=== PATIENT | male | born 1955 | race Caucasian/White ===

== ENCOUNTER 2016-07-31 08:41 | Inpatient (IN) | payer MEDICARE ==
[~2016-07-31] VITALS: Ht 180.3 cm; Wt 90.8 kg
[~2016-07-31 08:41] MED LIST: AMLO10TA2 PO; FLUT1SPR22 EACH NARE; LISI10TA3 PO; METH10TA PO; OMEP20CA2 PO; SIMV20TA PO; ZETI10TA5 PO
--- NOTE | 2016-07-31 17:56 | MH ---
cc: BRIAN CALLAHAN M.D. DATE OF ADMISSION: 08/01/2016 ADMITTING DIAGNOSIS: Lumbar degenerative disk disease. HISTORY OF PRESENT ILLNESS This is a 60-year-old male who presented to us for evaluation for neck and low back pain. He states his low back pain hurts more than his back pain. He has had low back pain chronically since he was a kid, and was diagnosed with ankylosing spondylitis at 11. He states in 1993 he urinated a disk at the L5-S1 level a acquired effusion and had multiple lumbar surgeries since then. He relates that he has had seven spine surgeries. His last surgery was in 1998. He states he tried to just manage his pain after the last surgery but it has progressively gotten worse for the last three years and he started seeking medical help for his pain. He states he has been to neurosurgery in [facility] who felt that they could not help him long-term. He states he went to pain management and has had injections in the cervical thoracic lumbar spine which he states sometimes a help and sometimes a dont. He states pain management feels the spinal stimulator or pain pump will not help him. He states he cannot walk a block now. He cannot get out of a stooped position secondary to low back pain and the pain in his legs. He states he has been on several pain medications in the past and he does not like the way they make him feel and he is currently on low dose methadone which helps take the edge off. He states he has pain across his low back and burning in his anterior legs with associated numbness and tingling. He also states his legs feel like they are in a vice. He also has pain radiating down the posterior left leg. He states his knees and ankles are killing him. He has burning on the bottom of his feet. He states his left leg oumar but he does not fall. He ambulates without any assistive device. He also has constant neck pain which he states started after he woke up from back surgery 1996. He states he was found to have C5-C6 and C6-C7 degenerative disk disease and has had a cervical fusion 1999 which helped him until about couple years ago the pain got bad again. He states he gets numbness in the bilateral fourth and fifth fingers. He also has pain and numbness of the shoulders to the forearms and into the first and second fingers bilaterally. He states his triceps areas totally numb. He has weakness in his hands and states he drops cups all the time and had to switch to plastic cups. He has urinary frequency and microscopic hematuria and is followed by urology for this. He has been chronically disabled since his cervical lumbar spine surgeries. PAST MEDICAL HISTORY: Significant for hypertension. Hyperlipidemia Gastroesophageal reflux disease. Chronic pain. Appendectomy 1961 Hernia repair in 1979. Left knee surgery 1977 and 1984. Right knee surgery 1988. Multiple lumbar spine fusions. The patient states that he has had seven lumbar spine surgeries C5-C7 fusion in 2001. CURRENT MEDICATIONS 1. He is taking lisinopril 10 mg p.o. q.h.s. 2. Amlodipine 10 mg p.o. q.h.s. 3. Methadone 10 mg p.o. b.i.d. 4. Simvastatin 20 mg q.h.s. steady at 10 mg p.o. daily. 5. Prilosec 20 mg p.o. b.i.d. 6. Fluticasone. 7. Nasal spray. ALLERGIES NO KNOWN DRUG ALLERGIES. SOCIAL HISTORY Drinks alcohol about two three times per year. He denies any current smoking. He states he quit 1.5 years ago. REVIEW OF SYSTEMS CONSTITUTIONAL: He denies any fever or chills. EAR, NOSE, AND THROAT: Positive for sinus drainage and hearing loss. CARDIOVASCULAR SYSTEM: Positive for palpitations. Denies chest pain. GENITOURINARY: No dysuria. Positive for history of hematuria. MUSCULOSKELETAL: Positive for neck and low back pain. SKIN: Positive for pruritus. NEUROLOGIC: No difficulty with speech or memory and the GASTROINTESTINAL: Positive for nausea in constipation. PSYCHIATRIC: No anxiety, positive for depression symptoms, positive for polyuria. PHYSICAL EXAMINATION HEAD, EYES, EARS, NOSE, AND THROAT: Head: Normocephalic, atraumatic. NECK: Supple. No carotid bruits heard on auscultation. LUNGS: Lungs clear to auscultation bilaterally. HEART: Regular rate and rhythm, normal sinus. ABDOMEN: Soft, nontender. Positive bowel sounds. SKIN: Reveals no cyanosis or erythema. He has a large lumbosacral midline incision. MUSCULOSKELETAL: He has 4/5 strength in his lower extremities which is limited secondary to his pain. He ambulates with a left Limp but no assistive devices. NEUROLOGIC: He is awake, alert, oriented. Cranial nerves II-XII are grossly intact. Speech is fluent, comprehension is good. Sensation is decreased the left biceps, triceps more then the right as well as the fifth finger and decrease the left lateral thigh and calf compared to the right-side. DATA REVIEWED: MRI of the lumbar spine from 02/21/2016 reveals moderate to severe L2-L3 spinal stenosis from a combination of facet ligamentum flavum hypertrophy. He has a post-laminectomy defect from L3-S1. CT of the lumbar spine from March 22, 2016 shows a L5 / S1 posterior lateral interbody fusion, L3-L4 posterior lateral fusion with non fusion at the L4-L5 level. Her pedicle screw defects from the removed screws bilaterally at the L3, l4, l5, S1 levels. MRI of the thoracic spine from February 24, 2016 does not reveal any significant stenosis. MRI of the cervical spine from 02/21/2016 reveals a previous fusion and plate from C5-C7 anteriorly with the C7 / T1 disk osteophyte complex and overall mild to moderate spinal stenosis and foraminal stenosis. He has mild stenosis at the C3-C4 and C4 / C5 levels. IMPRESSION 60-year-old male with a chronic history of low back pain along with neurogenic claudication symptoms and chronic paresthesias and numbness in his feet. He states that up until about 5 months ago. He is able to walk several miles a day but now cannot walk a block because of worsening back pain and lower extremity symptoms. He also complains of lower cervical spine pain radiating into the calf and to the scapula and upper extremities with chronic numbness and paresthesias in the ulnar distribution as well as radial distribution. He also states he has subjective weakness in his hands with fine motor control difficulty. Overall his low back symptoms bother him more than the neck symptoms. He has had multiple bouts of physical therapy and states he does these exercises are regular basis as much as he can tolerate them. He has also undergone multiple bouts of interventional pain management which has not helped him recently. He is on methadone and wants to avoid taking narcotic pain medications. He states over the past few years his quality of life significantly declined. He has significant L2-L3 spinal stenosis from facet ligamentum flavum hypertrophy along with adjacent segment disease and fusion at L3-L4 and also L5-S1 with pedicle screws that had been removed from L3-S1. He also has a anterior L5-S1 interbody fusion. The L4, L6 and L5 level does not appear to have fused, there is pseudoarthrosis noted. He does have a history of C5-C7 anterior cervical fusion with adjacent segment disease with disk osteophyte complex at the C7 / T1 level with overall mild to moderate spinal stenosis and significant foraminal stenosis, left more then right. There is also mild disk protrusion and stenosis at the C3-C4 and C4 / C5 levels. PLAN The patient is requesting surgical intervention for his lumbar and cervical spine. The patient states he is more symptomatic from his lumbar spine and he is requesting that we proceed with this first. We have recommended an L4 / L5 posterior lateral fusion with L2 / L3 transforaminal interbody fusion with cage and pedicle screw fixation. The procedure as well as the risk benefit, alternative recovery time were explained in great detail with the patient. We have discussed the risks involved with surgery include but not limited to bleeding, infection, muscle weakness voice hoarseness, difficulty swallowing, heart attack, stroke blood clots, non fusion, scar tissue formation among others. The patient understands the procedure as well as the risks involved is requesting that we proceed. He is therefore scheduled accordingly. Brian Callahan MD DICTATED BY: VANCE Maria/jethro /5:15 PM /5:39 PM
[2016-08-01 06:58] VITALS: BP 142/83; PULSE 83; RESP 18; TEMP 98.3; O2SAT 99
[2016-08-01] MEDS ORDERED: SODIUM CHLOR 0.9% 250 ML INJ 250 ML ONE (07:08)
[2016-08-01] MEDS ORDERED: VANCOMYCIN HCL 1000 MG VIAL ONE ×2 (07:08→11:26)
[2016-08-01] MEDS ORDERED: SODIUM CHLORID 0.9% 500 ML IV PRN (07:15)
[2016-08-01] MEDS: SODIUM CHLOR 0.9% 1000 ML INJ 1,000 ML IV SCH (07:15)
[2016-08-01] MEDS ORDERED: LACTATED RINGER'S 1000 ML IV PRN (07:15)
[2016-08-01] MEDS ORDERED: POVIDONE IODINE 5% (ANTISEPSIS KIT) 4 APPLICATIONS EACH NARE PRN (07:15)
[2016-08-01] MEDS ORDERED: METOPROLOL TARTRATE 25 MG TAB PO PRN (07:15)
[2016-08-01] MEDS ORDERED: CHLORHEXIDINE GLUCONATE 2 % 1 PACK (2 CLOTHS) TOPICAL PRN (07:15)
[2016-08-01] MEDS ORDERED: INSULIN HUMAN REGULAR 1,000 UNITS/10 ML VIAL SQ PRN (07:15)
[2016-08-01] MEDS ORDERED: VANCOMYCIN 1,000 MG/NS 250 ML IV SCH ×2 (07:15)
[2016-08-01] MEDS ORDERED: THROMBIN (TOPICAL) 5,000 UNIT VIAL ONE ×2 (07:18→11:26)
[2016-08-01] MEDS ORDERED: GELFOAM SIZE 100 ONE ×2 (07:18→11:26)
[2016-08-01] MEDS ORDERED: ACETAMINOPHEN 1000 MG/100 ML VIAL IV ONE (07:41)
[2016-08-01] MEDS ORDERED: FAMOTIDINE 20 MG/2 ML VIAL ONE (07:41)
[2016-08-01] MEDS ORDERED: HYDROmorphone HCL PF 2 MG/ML VIAL ONE (08:04)
[2016-08-01] MEDS: BUPIVACAINE/EPINEPHRINE 0.5% PF 30 ML VIAL ONE ×2 (09:24→11:37)
[2016-08-01] MEDS ORDERED: KETAMINE HCL 500 MG/5 ML VIAL ONE (09:28)
[2016-08-01] MEDS: VANCOMYCIN HCL 1000 MG VIAL ONE ×2 (09:30→11:30)
[2016-08-01] MEDS ORDERED: BUPIVACAINE/EPINEPHRINE 0.5% PF 30 ML VIAL ONE (11:40)
[2016-08-01] MEDS ORDERED: ePHEDrine/NS 25 MG/5 ML SYR IV ONE (12:00)
[2016-08-01] MEDS ORDERED: NORMOSOL R INJ 2,000 ML IV ONE (12:00)
[2016-08-01] MEDS ORDERED: NEOSTIGMINE 3 MG/3 ML SYR IV ONE (12:00)
[2016-08-01] MEDS ORDERED: NEOSTIGMINE METHYLSULFATE 10 MG/10 ML VIAL IV PUSH ONE (12:00)
[2016-08-01] MEDS ORDERED: PROPOFOL 200 MG/20 ML AMP IV ONE (12:00)
[2016-08-01] MEDS ORDERED: ONDANSETRON HCL 4 MG/2 ML VIAL IV PUSH ONE (12:00)
[2016-08-01] MEDS ORDERED: PHENYLEPH/NS 1000 MCG/10 ML SYR IV ONE (12:00)
[2016-08-01] MEDS: NS + KCL 20 MEQ INJ 1,000 ML IV SCH ×2 (12:32→21:55)
[2016-08-01] MEDS ORDERED: CALCIUM GLUCONATE INJ 1 GM in SODIUM CHLORIDE 0.9% INJ 100 ML IV PRN (12:45)
[2016-08-01] MEDS ORDERED: PROCHLORPERAZINE INJ 10 MG/2 ML VIAL IV PUSH PRN (12:45)
[2016-08-01] MEDS ORDERED: MENTHOL LOZENGE BUCCAL PRN (12:45)
[2016-08-01] MEDS ORDERED: ONDANSETRON HCL 4 MG/2 ML VIAL IV PRN (12:45)
[2016-08-01] MEDS ORDERED: MAGNESIUM HYDROXIDE SUSP 30 ML CUP PO PRN (12:45)
[2016-08-01] MEDS ORDERED: cloNIDine HCL 0.1 MG TAB PO PRN (12:45)
[2016-08-01] MEDS ORDERED: diphenhydrAMINE HCL 50 MG/ML VIAL IV PRN (12:45)
[2016-08-01] MEDS ORDERED: SODIUM CHLORIDE 0.9% FLUSH 10 ML FLUSH IV FLUSH PRN (12:45)
[2016-08-01] MEDS ORDERED: NALOXONE HCL 0.4 MG/ML AMP IV PRN (12:45)
[2016-08-01] MEDS ORDERED: ALUMINUM/MAGNESIUM/SIMETH 30 ML CUP PO PRN (12:45)
[2016-08-01] MEDS ORDERED: ZOLPIDEM TARTRATE 5 MG TAB PO PRN (12:45)
[2016-08-01] MEDS ORDERED: MAGNESIUM SULFATE INJ 2 GM in SODIUM CHLORIDE 0.9% INJ 100 ML IV PRN (12:45)
[2016-08-01] MEDS ORDERED: ACETAMINOPHEN 325 MG TAB PO PRN (12:45)
[2016-08-01] MEDS ORDERED: ACETAMINOPHEN/HYDROcodone 325 MG/10 MG TAB PO PRN (12:45)
[2016-08-01] MEDS ORDERED: RESP: ALBUTEROL 2.5 MG/3 ML NEB (PRN) NEB (12:45)
[2016-08-01] MEDS ORDERED: POTASSIUM CHLOR 20 MEQ PREMIX 100 ML IV PRN (12:45)
--- NOTE | 2016-08-01 12:46 | PD.OP ---
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 endotracheal by Beau Haney Surgeon: Brian Olivera M.D. Business Planner(s): Kiki Welsh Operation and Findings: Following initiation of general endotracheal anesthesia, the patient had a Sullivan catheter placed along with sequential compression devices. A gram of vancomycin was administered intravenously and he was turned in a prone position on a Amando frame, on a Andrea table, and all pressure points adequately padded. The lumbosacral region was then prepped with Chloraprep and sterilely draped with Ioban along the usual sterile draping. A right paraspinal skin incision was then made extending from the L2-3 level after infiltrating the skin with 0.5% Marcaine with epinephrine solution extending down through the fascia. The muscle fibers were split using avascular fatty plane and detached from the underlying facets, transverse process and lateral portion of lamina on the right side and a self-retaining retractor used for exposure. Intraoperative fluoroscopy was also used for level of confirmation along with microscope magnification for further dissection. There was significant facet and ligamentum flavum hypertrophy noted at the L2-L3 levels. Right L2-3 facet was resected with a drill bit along with the lamina and there was severe foraminal and lateral recess stenosis from hypertrophied ligamentum flavum and facet which were decompressed bilaterally through the unilateral approach. Epidural hemostasis was achieved with bipolar cautery and Gelfoam with thrombin. Subsequently entered into the disc space at the L2-3 level with a #15 blade and zheng were used for discectomy. I then placed PEEK cage packed with local autograft bone and more local autograft bone was packed adjacent to the cage in interspace for added interbody fusion. With placement of the cage, I was able to distract the interspace and opened up the foramen further bilaterally. Subsequently in order to facilitate the fusion and provide stabilization, pedicle screw fixation was undertaken using [place] spine screws on entry point at the right L2-3 levels at the junction of the transverse process and facet. Subsequently using AP and lateral fluoroscopy tap and screw placement. The screws were then connected with a marvel and locked in place with caps. The construct appeared very secure at this point. The area was then copiously irrigated with Vancomycin solution and powder. I then made another incision overlying the L4-5 level with exposure of the facet and transverse process and the pseudoarthrosis with failed fusion was noted at this level. With the drill bit the lateral portion of the facet and transverse processes were decorticated and the local autograft bone packed for a posterolateral fusion. The retractors were removed and the bipolar cautery used for hemostasis. The muscle fascia was then approximated using 2-0 Vicryl interrupted stitches and then 3-0 Vicryl subcuticular stitches also placed in interrupted fashion. The final skin closure was completed with Dermabond. A sterile dressing was then applied. The patient then turned in supine position, extubated and taken to recovery room. There were no intraoperative complications. All sponge and needle counts were correct at the end of procedure. Estimated blood loss about 100 ml. Brian Olivera MD August 01, 2016 12:46
[2016-08-01] MEDS ORDERED: fentaNYL CITRATE 250 MCG/5 ML AMP ONE (13:01)
[2016-08-01] MEDS ORDERED: MIDAZOLAM HCL 2 MG/2 ML VIAL ONE (13:01)
[2016-08-01] MEDS ORDERED: *morphine SULFATE 8 MG/ML PERIprocedure ONLY ONE ×2 (13:02→14:12)
[2016-08-01 13:25] LABS: AUTOMATED NEUTROPHIL # 8.6 TH/MM3 (1.8-7.7); BASOPHIL % 0.2 % (0.0-2.0); EOSINOPHIL % 0.1 % (0.0-4.0); HEMATOCRIT 36.6 % (39.0-51.0); HEMO FLAGS DIFF FINAL; LYMPH % 7.8 % (9.0-44.0); LYMPHOCYTE # 0.7 TH/MM3 (1.0-4.8); MEAN CELL VOLUME 88.6 FL (80.0-100.0); MEAN CORPUSCULAR HEMOGLOBIN 30.6 PG (27.0-34.0); MEAN CORPUSCULAR HGB CONC 34.5 % (32.0-36.0); MONO % 0.8 % (0.0-8.0); NEUT % 91.1 % (16.0-70.0); PLATELET COUNT 226 TH/MM3 (150-450); RED BLOOD COUNT 4.12 MIL/MM3 (4.50-5.90); RED CELL DISTRIBUTION WIDTH 13.9 % (11.6-17.2); WHITE BLOOD COUNT 9.5 TH/MM3 (4.0-11.0)
[2016-08-01] MEDS: MORPHINE SULFATE 30 MG/30 ML PCA IV SCH (13:25)
--- NOTE | 2016-08-01 13:37 | RADRPT ---
EXAM DATE/TIME: 08/01/2016 09:06 [place] COMPARISON: No previous studies available for comparison. INDICATIONS : Lumbar spine L3-4 fusion and L4-5 laminectomy. OR. MEDICAL HISTORY : None. SURGICAL HISTORY : None. ENCOUNTER: Initial ACUITY: 1 day PAIN SCORE: Non-responsive. LOCATION: Lumbar L3-4-5 FINDINGS: Examination reveals hardware fusion at what I believe is L3-4 with pedicle screw and longitudinal bar fixation present on the right. Intervening disc space appears well-positioned. Alignment is satisfac tory and hardware is intact. The alignment at the lower levels is also satisfactory. No acute bony fi ndings are appreciated. CONCLUSION: Satisfactory operative appearance Rush Stallings MD on August 01, 2016 at 13:34 Board Certified Radiologist. This report was verified electronically.
[2016-08-01 13:50] LABS: BICARBONATE 24.4 MEQ/L (21.0-32.0); MAGNESIUM 3.2 MG/DL (1.5-2.5); POTASSIUM 3.4 MEQ/L (3.5-5.1)
[2016-08-01] MEDS: PCA - TOTAL MG MORPHINE DELIVERED PER SHIFT SCH ×2 (14:00→21:53)
[2016-08-01] MEDS ORDERED: *HYDROmorphone PF 1 MG VIAL PERIprocedural Use ONLY ONE (14:52)
[2016-08-01] MEDS: ACETAMINOPHEN/HYDROcodone 325 MG/10 MG TAB PO PRN (16:42)
[2016-08-01] MEDS: CYCLOBENZAPRINE HCL 10 MG TAB PO PRN (16:50)
--- NOTE | 2016-08-01 19:25 | EKG ---
Date Performed: 08/01/2016 Time Performed: 07:17:08 PTAGE: 60 years EKG: Sinus rhythm NORMAL ECG NO PREVIOUS TRACING DOCTOR: Augustina Bernal Interpretating Date/Time 08/01/2016 19:23:07
[2016-08-01 20:00] VITALS: BP 96/51; PULSE 70; RESP 16; TEMP 97; O2SAT 97
[2016-08-01] MEDS: PANTOPRAZOLE SOD 20 MG DELAYED RELEASE TAB PO SCH (21:56)
[2016-08-01] MEDS: DOCUSATE SODIUM 100 MG CAP PO SCH (21:56)
[2016-08-01] MEDS: FLUTICASONE PROPIONATE 50 MCG/ACT 16 GM NASAL SPRAY NASAL SCH (21:56)
[2016-08-01] MEDS: PRAVASTATIN SOD 40 MG TAB PO SCH (21:56)
[2016-08-01] MEDS: SODIUM CHLORIDE 0.9% FLUSH 10 ML FLUSH IV FLUSH SCH (21:56)
[2016-08-01] MEDS: LISINOPRIL 10 MG TAB PO SCH (21:57)
[2016-08-01] MEDS: METHADONE HCL 10 MG TAB PO SCH (21:57)
[2016-08-02 00:30] VITALS: BP_SYST 105; BP_SYST 148; BP_DIAS 60; BP_DIAS 93; PULSE 87; RESP 16; RESP 17; TEMP 96.3; TEMP 97; O2SAT 95; O2SAT 96
[2016-08-02 04:15] VITALS: BP 102/61; PULSE 73; RESP 17; TEMP 96.8; O2SAT 97
[2016-08-02] MEDS: PCA - TOTAL MG MORPHINE DELIVERED PER SHIFT SCH ×3 (05:08→21:26)
[2016-08-02] MEDS: SODIUM CHLOR 0.9% 1000 ML INJ 1,000 ML IV SCH (07:15)
[2016-08-02 07:50] VITALS: BP 97/57; PULSE 69; RESP 17; TEMP 97.4; O2SAT 97
[2016-08-02] MEDS: LACTULOSE SYRUP 20 GM/30 ML CUP PO SCH (08:13)
[2016-08-02] MEDS: DOCUSATE SODIUM 100 MG CAP PO SCH ×2 (08:14→20:36)
[2016-08-02] MEDS: EZETIMIBE 10 MG TAB PO SCH (08:14)
[2016-08-02] MEDS: PANTOPRAZOLE SOD 20 MG DELAYED RELEASE TAB PO SCH ×2 (08:14→20:35)
[2016-08-02] MEDS: METHADONE HCL 10 MG TAB PO SCH ×2 (08:15→20:36)
[2016-08-02] MEDS: SODIUM CHLORIDE 0.9% FLUSH 10 ML FLUSH IV FLUSH SCH ×2 (08:15→20:36)
[2016-08-02] MEDS: NS + KCL 20 MEQ INJ 1,000 ML IV SCH ×2 (08:17→17:50)
--- NOTE | 2016-08-02 10:02 | HHI.NSPN ---
History Chief Complaint: Incisional pain controlled. Interval History 08/02/16: s/p Lumbar L2-3 transforaminal interbody fusion; L4-5 posterolateral fusion; L2-L3 decompressive laminectomies with medial facetectomies; L2-3 pedicle screw fixation; L2-3 interbody cage placement, pod #1. Pt awake and alert. States stabbing shooting pain in LEs resolved. mild tingling in toes and plantar aspect of foot at toes. Incisional pain controlled with ART HISTORIAN. Pt states he has had difficulty in the past urinating after surgery and request Sullivan to be left in another day. Review of Systems General: Negative for: fever, chills, insomnia Respiratory: Negative for: shortness of breath, cough, sputum Cardiovascular: Negative for: chest pain Gastrointestinal: Negative for: nausea, vomitting, diarrhea, constipation Exam Results Vital Signs Date Time Temp Pulse Resp B/P Pulse Ox O2 Delivery O2 Flow Rate FiO2 08/02/16 07:50 97.4 69 17 97/57 97 08/01/16 19:00 Room Air 08/01/16 16:30 2 Intake and Output 08/01/16 08/01/16 08/02/16 08:00 16:00 00:00 Intake Total 1900 ml 1470 ml Output Total 1250 ml 1050 ml Balance 650 ml 420 ml Physical Examination Resp: CTA bilaterally Heart: NSR no murmurs Abd: Soft positive bs Skin: Pt log rolled. Incision clean and dry. No signs of infection. new bandage place. Muscle: Moves LEs with overall 4+/5 strength, mild limitation secondary to pain. Neuro: Pt awake and alert. Follows commands well. Speech clear and appropriate. Lab, Micro, Other Results Last Impressions Lumbar Spine X-Ray 08/01/16 0000 Signed Impressions: Service Date/Time: Monday, August 01, 2016 09:06 - CONCLUSION: Satisfactory operative appearance Rush Stallings MD Laboratory Tests Test 08/01/16 13:04 White Blood Count 9.5 TH/MM3 Red Blood Count 4.12 MIL/MM3 Hemoglobin 12.6 GM/DL Hematocrit 36.6 % Mean Corpuscular Volume 88.6 FL Mean Corpuscular Hemoglobin 30.6 PG Mean Corpuscular Hemoglobin 34.5 % Concent Red Cell Distribution Width 13.9 % Platelet Count 226 TH/MM3 Mean Platelet Volume 7.1 FL Neutrophils (%) (Auto) 91.1 % Lymphocytes (%) (Auto) 7.8 % Monocytes (%) (Auto) 0.8 % Eosinophils (%) (Auto) 0.1 % Basophils (%) (Auto) 0.2 % Neutrophils # (Auto) 8.6 TH/MM3 Lymphocytes # (Auto) 0.7 TH/MM3 Monocytes # (Auto) 0.1 TH/MM3 Eosinophils # (Auto) 0.0 TH/MM3 Basophils # (Auto) 0.0 TH/MM3 CBC Comment DIFF FINAL Differential Comment Sodium Level 142 MEQ/L Potassium Level 3.4 MEQ/L Chloride Level 109 MEQ/L Carbon Dioxide Level 24.4 MEQ/L Anion Gap 9 MEQ/L Blood Urea Nitrogen 15 MG/DL Creatinine 1.13 MG/DL Estimat Glomerular Filtration 66 ML/MIN Rate Random Glucose 139 MG/DL Calcium Level 8.4 MG/DL Magnesium Level 3.2 MG/DL 08/01/16 08/01/16 08/02/16 15:00 23:00 07:00 Intake Total 1900 ml 1470 ml 1278 ml Output Total 1250 ml 1050 ml 600 ml Balance 650 ml 420 ml 678 ml Intake Oral 480 ml 480 ml IV Total 990 ml 798 ml Other 1900 ml Output Urine Total 350 ml 1050 ml 600 ml Estimated Blood Loss 100 ml Other 800 ml # Bowel Movements 0 0 Medical Decision Making Impression and Plan A: 60 y/o M s/p Lumbar L2-3 transforaminal interbody fusion; L4-5 posterolateral fusion; L2-L3 decompressive laminectomies with medial facetectomies; L2-3 pedicle screw fixation; L2-3 interbody cage placement, pod # 1. P: Continue with pain control Increase activity, oob with brace. continue with current care Morgan Thompson August 02, 2016 10:02
[2016-08-02] MEDS: FLUTICASONE PROPIONATE 50 MCG/ACT 16 GM NASAL SPRAY NASAL SCH ×2 (10:31→20:37)
[2016-08-02 12:07] VITALS: BP 122/66; PULSE 67; RESP 17; TEMP 95.9; O2SAT 96
[2016-08-02] MEDS: MORPHINE SULFATE 30 MG/30 ML PCA IV SCH (13:19)
[2016-08-02 16:00] VITALS: BP 128/69; PULSE 70; RESP 17; TEMP 98; O2SAT 98
[2016-08-02] MEDS: CYCLOBENZAPRINE HCL 10 MG TAB PO PRN (20:35)
[2016-08-02] MEDS: LISINOPRIL 10 MG TAB PO SCH (20:36)
[2016-08-02] MEDS: PRAVASTATIN SOD 40 MG TAB PO SCH (20:36)
[2016-08-02] MEDS: ACETAMINOPHEN/HYDROcodone 325 MG/10 MG TAB PO PRN (20:37)
[2016-08-02 20:50] VITALS: BP 116/62; PULSE 77; RESP 17; TEMP 97.2; O2SAT 99
[2016-08-03] VITALS (8 sets, daily range): BP systolic 106–135; BP diastolic 57–69; PULSE 67–76; RESP 12–18; TEMP 96.7–98.7; O2SAT 95–99
[2016-08-03] MEDS: SODIUM CHLOR 0.9% 1000 ML INJ 1,000 ML IV SCH (02:11)
[2016-08-03] MEDS: MORPHINE SULFATE 30 MG/30 ML PCA IV SCH (03:52)
[2016-08-03] MEDS: NS + KCL 20 MEQ INJ 1,000 ML IV SCH (03:52)
[2016-08-03] MEDS: PCA - TOTAL MG MORPHINE DELIVERED PER SHIFT SCH (05:20)
[2016-08-03] MEDS: ACETAMINOPHEN/HYDROcodone 325 MG/10 MG TAB PO PRN ×3 (08:12→23:18)
[2016-08-03] MEDS: EZETIMIBE 10 MG TAB PO SCH (08:13)
[2016-08-03] MEDS: SODIUM CHLORIDE 0.9% FLUSH 10 ML FLUSH IV FLUSH SCH ×2 (08:13→21:47)
[2016-08-03] MEDS: LACTULOSE SYRUP 20 GM/30 ML CUP PO SCH (08:13)
[2016-08-03] MEDS: FLUTICASONE PROPIONATE 50 MCG/ACT 16 GM NASAL SPRAY NASAL SCH ×2 (08:13→21:47)
[2016-08-03] MEDS: METHADONE HCL 10 MG TAB PO SCH ×2 (08:13→21:50)
[2016-08-03] MEDS: DOCUSATE SODIUM 100 MG CAP PO SCH ×2 (08:13→21:49)
[2016-08-03] MEDS: PANTOPRAZOLE SOD 20 MG DELAYED RELEASE TAB PO SCH ×2 (08:13→21:49)
--- NOTE | 2016-08-03 10:12 | HHI.NSPN ---
(Morgan Thompson) History Chief Complaint: Incisional pain controlled. (Morgan Thompson) Interval History 08/02/16: s/p Lumbar L2-3 transforaminal interbody fusion; L4-5 posterolateral fusion; L2-L3 decompressive laminectomies with medial facetectomies; L2-3 pedicle screw fixation; L2-3 interbody cage placement, pod #1. Pt awake and alert. States stabbing shooting pain in LEs resolved. mild tingling in toes and plantar aspect of foot at toes. Incisional pain controlled with DIRECTOR OF INSTRUCTIONAL TECHNOLOGY. Pt states he has had difficulty in the past urinating after surgery and request Sullivan to be left in another day. 08/03/16: Pt states he is much more painful today. He wants to stop the DIRECTOR OF INSTRUCTIONAL TECHNOLOGY stating he doesn't think its helping much and the oral pain medication helping more. He has burning pain left side of back and sharp stabbing pain in the left anterior thigh. (Morgan Thompson) Review of Systems General: Negative for: fever, chills, insomnia Respiratory: Negative for: shortness of breath, cough, sputum Cardiovascular: Negative for: chest pain Gastrointestinal: Negative for: nausea, vomitting, diarrhea, constipation ( Morgan Thompson) Exam Results Vital Signs Date Time Temp Pulse Resp B/P Pulse Ox O2 Delivery O2 Flow Rate FiO2 08/03/16 08:00 97.1 76 15 109/64 97 08/01/16 19:00 Room Air 08/01/16 16:30 2 Intake and Output 08/02/16 08/02/16 08/03/16 08:00 16:00 00:00 Intake Total 1278 ml 1020 ml 480 ml Output Total 600 ml 1750 ml 1700 ml Balance 678 ml -730 ml -1220 ml (Morgan Thompson) Physical Examination Resp: CTA bilaterally Heart: NSR no murmurs Abd: Soft positive bs Skin: Bandage changed by RN this morning, clean and dry. Muscle: Moves LEs with overall 4+/5 strength, mild limitation secondary to pain. Neuro: Pt awake and alert. Follows commands well. Speech clear and appropriate. (Morgan Thompson) Lab, Micro, Other Results Last Impressions Lumbar Spine X-Ray 08/01/16 0000 Signed Impressions: Service Date/Time: Monday, August 01, 2016 09:06 - CONCLUSION: Satisfactory operative appearance Rush Stallings MD 08/02/16 08/02/16 08/03/16 15:00 23:00 07:00 Intake Total 1020 ml 480 ml 240 ml Output Total 1750 ml 1700 ml 1750 ml Balance -730 ml -1220 ml -1510 ml Intake Oral 1020 ml 480 ml 240 ml Output Urine Total 1750 ml 1700 ml 1750 ml # Voids 0 # Bowel Movements 0 0 0 (Morgan Thompson) Medical Decision Making Impression and Plan A: 60 y/o M s/p Lumbar L2-3 transforaminal interbody fusion; L4-5 posterolateral fusion; L2-L3 decompressive laminectomies with medial facetectomies; L2-3 pedicle screw fixation; L2-3 interbody cage placement, pod # 2. P: D/C DIRECTOR OF INSTRUCTIONAL TECHNOLOGY per pts request. Continue with oral pain meds. Discussed trying Neurontin but he states it made him feel lousy last time he was on it and wants to try to get by without it. Increase activity, oob with brace. continue with current care (Morgan Thompson) Attending Statement The exam, history, and the medical decision-making described in the above note were completed with the assistance of the mid-level provider. I reviewed and agree with the findings presented. I attest that I had a [id number] encounter with the patient on the same day, and personally performed and documented my assessment and findings in the medical record. (Brian Olivera MD) Morgan Thompson August 03, 2016 10:12 Brian Olivera MD August 03, 2016 13:52
[2016-08-03] MEDS ORDERED: HYDROmorphone HCL PF 1 MG/ML VIAL IV PUSH PRN (13:00)
[2016-08-03] MEDS ORDERED: BISACODYL 10 MG SUPP RECTAL ONE (14:00)
[2016-08-03] MEDS ORDERED: GETGO ROLLING W1 MI1 (14:11)
[2016-08-03] MEDS ORDERED: CYCL1TAB29 PO (14:18)
[2016-08-03] MEDS ORDERED: HYDR-3583 PO (14:18)
[2016-08-03] MEDS: PRAVASTATIN SOD 40 MG TAB PO SCH (21:00)
[2016-08-03] MEDS: LISINOPRIL 10 MG TAB PO SCH (21:49)
[2016-08-04] MEDS: ACETAMINOPHEN/HYDROcodone 325 MG/10 MG TAB PO PRN ×4 (05:25→21:27)
[2016-08-04 07:39] VITALS: BP 126/66; PULSE 65; RESP 17; TEMP 98.2; O2SAT 97
[2016-08-04] MEDS: METHADONE HCL 10 MG TAB PO SCH ×2 (09:00→21:26)
[2016-08-04] MEDS: LACTULOSE SYRUP 20 GM/30 ML CUP PO SCH (09:00)
[2016-08-04 09:21] VITALS: O2SAT 98
[2016-08-04] MEDS: PANTOPRAZOLE SOD 20 MG DELAYED RELEASE TAB PO SCH ×2 (10:34→21:25)
[2016-08-04] MEDS: DOCUSATE SODIUM 100 MG CAP PO SCH ×2 (10:34→21:25)
[2016-08-04] MEDS: EZETIMIBE 10 MG TAB PO SCH (10:34)
[2016-08-04] MEDS: SODIUM CHLORIDE 0.9% FLUSH 10 ML FLUSH IV FLUSH SCH ×2 (10:36→21:25)
[2016-08-04] MEDS: FLUTICASONE PROPIONATE 50 MCG/ACT 16 GM NASAL SPRAY NASAL SCH ×2 (10:37→21:25)
[2016-08-04 11:37] VITALS: BP 121/69; PULSE 71; RESP 17; TEMP 97.1; O2SAT 98
[2016-08-04 15:56] VITALS: BP 113/64; PULSE 67; RESP 17; TEMP 97.4; O2SAT 99
[2016-08-04 19:46] VITALS: BP 116/63; PULSE 74; RESP 17; TEMP 96.6; O2SAT 98
--- NOTE | 2016-08-04 20:06 | HHI.DCPOC ---
Discharge Care Plan Diagnosis: (1) Lumbar stenosis with neurogenic claudication Your Health Problems Are: Difficulty with ADL Incision/Drains Chronic Pain Goals to Promote Your Health * To prevent worsening of your condition and complications * To maintain your health at the optimal level Directions to Meet Your Goals Take your medications as prescribed Follow your dietary instruction Follow activity as directed Keep your appointments as scheduled Take your immunizations and boosters as scheduled If your symptoms worsen call your PCP, if no PCP go to Urgent Care Center or Emergency Room Smoking is Dangerous to Your Health. Avoid second hand smoke Call the 24-hour hour crisis hotline for domestic abuse at Josse Castaneda MD August 04, 2016 20:06
--- NOTE | 2016-08-04 20:12 | HHI.NSPN ---
History Chief Complaint: Incisional pain controlled. Interval History 60-year-old male status post L2-3 TLIF 08/01/16. System Review Comments Intermittent mild to moderate discomfort and some persistent numbness primarily anterior medial left thigh and calf. Improved compared to preoperative. Exam Results Vital Signs Date Time Temp Pulse Resp B/P Pulse Ox O2 Delivery O2 Flow Rate FiO2 08/04/16 15:56 97.4 67 17 113/64 99 08/04/16 09:21 21 08/03/16 19:01 Room Air 08/01/16 16:30 2 Intake and Output 08/03/16 08/03/16 08/04/16 08:00 16:00 00:00 Intake Total 240 ml 1440 ml 720 ml Output Total 1750 ml 1450 ml 700 ml Balance -1510 ml -10 ml 20 ml Physical Examination Respirations clear and regular Sitting up in a chair Awake and alert, conversant and appropriate Sensation mildly diminished primarily L3 distribution left lower extremity Mild weakness left iliopsoas and quadriceps with complaint of back pain with testing. Otherwise normal strength throughout the lower extremities No lower extremity edema Medical Decision Making Impression and Plan Impression: 1. Patient's neurologic status and pain improving postoperatively. Vital signs stable. Tolerating diet. Ambulating with walker. Plan: Findings discussed with the patient. He is feeling better today. He believes that he should be able to go home tomorrow as long as his pain level continues to improve. Signs and symptoms to watch for fully discussed. Delivery of his walker to his room is still pending. He is otherwise stable for discharge 08/05/16 from neurosurgery standpoint. Josse Castaneda MD August 04, 2016 20:12
[2016-08-04] MEDS: LISINOPRIL 10 MG TAB PO SCH (21:25)
[2016-08-04] MEDS: PRAVASTATIN SOD 40 MG TAB PO SCH (21:27)
[2016-08-04 23:13] VITALS: BP 100/56; PULSE 65; RESP 18; TEMP 97; O2SAT 96
[2016-08-05] MEDS: ACETAMINOPHEN/HYDROcodone 325 MG/10 MG TAB PO PRN ×3 (04:02→14:51)
[2016-08-05 07:32] VITALS: BP 112/64; PULSE 59; RESP 16; TEMP 96.9; O2SAT 98
[2016-08-05] MEDS: LACTULOSE SYRUP 20 GM/30 ML CUP PO SCH (09:00)
[2016-08-05] MEDS: METHADONE HCL 10 MG TAB PO SCH (09:00)
[2016-08-05] MEDS: FLUTICASONE PROPIONATE 50 MCG/ACT 16 GM NASAL SPRAY NASAL SCH (09:12)
[2016-08-05] MEDS: SODIUM CHLORIDE 0.9% FLUSH 10 ML FLUSH IV FLUSH SCH (09:12)
[2016-08-05] MEDS: DOCUSATE SODIUM 100 MG CAP PO SCH (09:12)
[2016-08-05] MEDS: PANTOPRAZOLE SOD 20 MG DELAYED RELEASE TAB PO SCH (09:13)
[2016-08-05] MEDS: EZETIMIBE 10 MG TAB PO SCH (09:14)
[2016-08-05 11:35] VITALS: BP 122/67; PULSE 72; RESP 16; TEMP 95.9; O2SAT 99
--- NOTE | 2016-08-11 13:20 | HHI.DS ---
Discharge Summary Admission Date August 01, 2016 at 06:02 Discharge Date: August 05, 2016 Admitting Diagnosis (1) Low back pain Diagnosis: Principal ICD Code: M54.5 (2) Postlaminectomy syndrome, lumbar Diagnosis: Principal ICD Code: M96.1 (3) Pseudoarthrosis of lumbar spine Diagnosis: Principal ICD Code: S32.009K (4) Facet arthropathy, lumbar Diagnosis: Principal ICD Code: M12.88 (5) Lumbar degenerative disc disease Diagnosis: Principal ICD Code: M51.36 (6) Lumbar stenosis with neurogenic claudication Diagnosis: Principal ICD Code: M48.06 (7) Cervical disc disorder with radiculopathy Diagnosis: Secondary ICD Code: M50.10 (8) Degenerative cervical spinal stenosis Diagnosis: Secondary ICD Code: M48.02 (9) Degenerative disc disease, cervical Diagnosis: Secondary ICD Code: M50.30 Procedures L2/L3 transforaminal interbody fusion; L4/L5 posterior lateral fusion; L2/L3 decompressive laminectomy with medial facetectomy; L2-L3 pedicle screw fixation ; L2/L3 interbody cage placement by Dr. Olivera on 08/01/16. Brief History This is a 60-year-old male who presented to us for evaluation of neck and low back pain. He states his low back pain hurts more than his neck pain. He has had low back pain chronically since he was a candidate and diagnosed with ankylosing spondylitis at 11. He states in 1993 he herniated a disc at the L5/ S1 level and required a fusion and has had multiple lumbar spine surgeries since then. He relates that he has had several spine surgeries. His last surgery was in 1998. He states he tried to just manage his pain after that surgery but had progressively gotten worse after last 3 years and he started seeking medical help for his pain. He states he has been to neurosurgery [facility] who felt they could not help him long-term. He states he went to pain management and has had injections in the cervical and thoracic and lumbar spine which he states sometimes helps and sometimes they don't. He states pain management feels the spinal stimulator or pain pump will not help him. He states he cannot walk a block now. He cannot get out of a stooped position secondary to the low back pain and pain in his legs. He states he has been on several pain medications in the past and he does not like the way that make him feel is currently on low dose methadone which helps take the edge off. He states he has pain across his low back burning in his anterior legs with associated numbness and tingling. He also states his legs feel like they are in a brace. He has pain radiating down the posterior left leg. He states his knees and ankles are killing him. He has burning on the bottom of his feet. He states his left leg oumar but he does not fall. Imaging MRI of the lumbar spine from 02/21/16 reveals moderate to severe L2/L3 spinal stenosis from a combination of facet and ligamentum flavum hypertrophy. He has a postlaminectomy defect from L3-S1. CT of the lumbar spine from March 22, 2016 shows a L5/S1 posterolateral interbody fusion, L3/L4 posterior lateral fusion with non-fusion at the L4/L5 level. He has pedicle screw defects from removed screws bilaterally at the L3, L4, L5, S1 levels. MRI of the thoracic spine from February 24, 2016 does not reveal any significant stenosis. MRI of the cervical spine from 02/21/16 reveals a previous fusion and plate from C5-C7 anteriorly with the C7/T1 disc ossified complex and overall mild to moderate spinal stenosis or foraminal stenosis. He has mild stenosis at the C3/C4 and C4 /C5 levels. Hospital Course Patient underwent the above-noted procedure performed by Dr. Olivera. He was admitted to the medical surgical floor. Physical therapy was consult the. Patient's pain was controlled on a SURFACING MACHINE OPERATOR initially. This was discontinued and his pain was controlled on oral pain medication. His activity status was increased. Patient was discharged home in stable condition. Pt Condition on Discharge: Stable Discharge Disposition: Discharge Home Discharge Instructions DIET: Follow Instructions for: As Tolerated, No Restrictions ACTIVITIES You can perform: Shower Only-No Bath Activities to Avoid: Lifting/Bending, Prolonged Standing, Strenuous Activity, Bathing, Driving ADDITIONAL Activity Instructio: Lumbar brace on when sitting, standing or walking. New Medications: Walker Rolling/GetGo (Walker Rolling/GetGo) 1 Mis Mis 1 EA .ROUTE DIRECTED #1 EA Cyclobenzaprine (Flexeril) 10 Mg Tab 10 MG PO Q8H PRN MUSCLE SPASM #30 TAB Hydrocodone-Acetaminophen (Hydrocodone-Acetaminophen) 10-325 mg Tab 1 TAB PO Q4H PRN PAIN SCALE 1 TO 5 #60 TAB Continued Medications: Amlodipine (Amlodipine) 10 Mg Tab 10 MG PO HS Blood Pressure Management #30 Ref 0 TAB Ezetimibe (Zetia) 10 Mg Tab 10 MG PO DAILY #30 Ref 0 TAB Fluticasone Propionate (Nasal) (Allergy Nasal [place] 24 Ho) 50 Mcg/Act Spr 1 SPRAY EACH NARE DAILY Lisinopril (Lisinopril) 10 Mg Tab 10 MG PO HS #30 Ref 0 TAB Methadone (Methadone) 10 Mg Tab 5 MG PO BID Ref 0 TAB Omeprazole (Omeprazole) 20 Mg Cap 20 MG PO BID #60 Simvastatin (Simvastatin) 20 Mg Tab 20 MG PO HS Cholesterol Management #30 Ref 0 TAB Morgan Thompson Aug 11, 2016 13:20
[2016-09-13] MEDS ORDERED: GABA300C5 PO (15:46)
== END 2016-08-05 15:05 | disposition home or self-care (01) | DRG 460 ==
LOC: HSDI 08-01 06:02 → EDUNIT# 08-01 08:30 → N06A 08-01 19:20
PROVIDERS: ADMIT Neurological Surgery; ATTEND Neurological Surgery
PROC: 0SG00Z1 (ICD-10-PCS; 2016-08-01)
PROC: 0SB20ZZ Excision of Lumbar Vertebral Disc, Open Approach (ICD-10-PCS; 2016-08-01)
PROC: 0SG00AJ Fusion of Lumbar Vertebral Joint with Interbody Fusion Device, Posterior Approach, Anterior Column, Open Approach (ICD-10-PCS; principal; 2016-08-01 08:36)
DX: M96.0 Pseudarthrosis after fusion or arthrodesis (principal); J44.9 Chronic obstructive pulmonary disease, unspecified; M96.1 Postlaminectomy syndrome, not elsewhere classified; I10 Essential (primary) hypertension; M51.16 Intervertebral disc disorders with radiculopathy, lumbar region; M48.02 Spinal stenosis, cervical region; M48.06 Spinal stenosis, lumbar region; M25.78 Osteophyte, vertebrae; M45.9 Ankylosing spondylitis of unspecified sites in spine; M50.11 Cervical disc disorder with radiculopathy, high cervical region; M50.10 Cervical disc disorder with radiculopathy, unspecified cervical region; M46.96 Unspecified inflammatory spondylopathy, lumbar region; M50.121 Cervical disc disorder at C4-C5 level with radiculopathy; E78.5 Hyperlipidemia, unspecified; K21.9 Gastro-esophageal reflux disease without esophagitis; G89.29 Other chronic pain; R31.29 Other microscopic hematuria; F32.9 Major depressive disorder, single episode, unspecified; Y83.8 Other surgical procedures as the cause of abnormal reaction of the patient, or of later complication, without mention of misadventure at the time of the procedure; Z87.891 Personal history of nicotine dependence; Z98.1 Arthrodesis status
CPT/HCPCS: 72100; 76000; 80048; 83735; 85025; 86850; 86900; 86901; 93005; 94150; C1713; J0131; J0690; J1170; J2250; J2270; J2370; J2405; J2710; J3010; J3370; J3480; J7050; J7120; L0150; L0627